=== PATIENT | female | born 1955 | race Caucasian/White ===

== ENCOUNTER 2018-12-13 10:47 | Day surgery (SDC) | payer BC ==
--- NOTE | 2018-12-13 08:09 | HP ---
DATE OF SURGERY: 12/13/2018 HISTORY OF PRESENT ILLNESS: The patient is a 63 year-old the past couple months increasing discomfort, question change in size of left arm subcutaneous mass or lipoma causing her increasing symptoms and she desires definitive excision. PAST MEDICAL HISTORY: She has had myocardial infarction, sleep apnea, Graves, hypertension in the past. She did have sleep apnea and heart disease in the past. PAST SURGICAL HISTORY: Tonsillectomy. Hysterectomy. Cholecystectomy. She had bowel resection. She had carpal tunnel in the past. She had knee replaced in the past. MEDICATIONS: Metoprolol, Enalapril, Furosemide, Zolpidem, Centrum Silver, calcium with vitamin D, aspirin, omega-3, Zyrtec. ALLERGIES: KEFLEX. TETANUS. FAMILY HISTORY: Cancer. SOCIAL HISTORY: She denies alcohol abuse. REVIEW OF SYSTEMS: Twelve systems reviewed. No chest pain or palpitations other systems negative or noncontributory as above and per preadmission questionnaire. PHYSICAL EXAMINATION: GENERAL: No acute distress. HEENT: Sclerae nonicteric. NECK: No JVD. CHEST: Equal excursion, nonlabored breathing. CVS: Regular rate and rhythm. ABDOMEN: Soft. No peritoneal signs. EXTREMITIES: Pertinent for subcutaneous mass on the left arm antecubital area. No cyanosis. No significant edema. NEURO: Alert, oriented, moving extremities symmetrically. No gross motor deficits noted. RECTAL: Deferred timed to endoscopy exam. IMPRESSION: Increasingly symptomatic subcutaneous mass or nodule left arm. I feel the patient will benefit from excisional biopsy. Risks and benefits explained in detail including but not limited to bleeding or infection, risk of hematoma or seroma formation, risk of aches, pains, burning, numbness or weakness of extremity, risk of sensory or motor nerve irritation or scar formation but not limited to as well as general risk of anesthesia, deep venous thrombosis, pulmonary embolism or pneumonia. She understands and agrees to the planned procedure, will proceed with excisional biopsy of left arm subcutaneous mass, nodule or lipoma as an outpatient.
[~2018-12-13 10:47] MED LIST: Lactated Ringers 1,000 ML IV ONE; Lactated Ringers 1,000 ML IV SCH; Sensorcaine 0.25% 10 ML ONE
[2018-12-13] MEDS ORDERED: TORAdol 30 mg Injection IV ONE (10:48)
[2018-12-13] MEDS ORDERED: Decadron 4 MG INJ IV ONE (10:48)
[2018-12-13] MEDS ORDERED: SUBLIMAZE 100 MCG/2 ML IV ONE (10:48)
[2018-12-13] MEDS ORDERED: DIPRIVAN 200 MG/20 ML IV ONE (10:48)
[2018-12-13] MEDS ORDERED: Zofran 4 MG/2 ML VIAL IV ONE (10:48)
[2018-12-13] MEDS ORDERED: Lactated Ringers 1,000 ML IV ONE (11:13)
[2018-12-13] MEDS ORDERED: Cleocin Phosphate IV 600 MG/4 ML ONE (13:16)
[2018-12-13 15:06] VITALS: BP 133/82; PULSE 61; O2SAT 96
--- NOTE | 2018-12-13 15:10 | OP ---
SURGERY DATE/TIME: 12/13/2018 1319 PREOPERATIVE DIAGNOSIS: Enlarging subcutaneous mass left antecubital area. POSTOPERATIVE DIAGNOSIS: Enlarging subcutaneous mass left antecubital area (lipomatous consistency). PROCEDURE: Excisional biopsy of left antecubital lipomatous density (approximately 4.5 cm) with intermediate closure. SURGEON: Dr. Donnie Chávez. ANESTHESIA: General. ESTIMATED BLOOD LOSS: Minimal. INDICATIONS: As noted above. Risks and benefits explained in detail and not limited to and consent obtained. DESCRIPTION OF PROCEDURE AND FINDINGS: The patient is taken to the operating room. General anesthesia induced. Arm had been marked and confirmed with the patient in the preoperative holding area. Prepped and draped in usual sterile fashion. After official time out and no disagreement with planned procedure, this mass is laying diagonally with the top edge of the antecubital area. Dissection carried down through the skin circumferentially around this lipomatous density. It is carefully dissected off the underlying fascia and dissected off underlying veins. The specimen is passed off for pathology. It is lipomatous in consistency, final path pending. There did not appear to be any other palpable nodules in the area. Good hemostasis noted. The wound was then closed in layers intermediate fashion advancing the flaps back towards the midline with interrupted 3-0 Vicryl in deep and superficial subcu. Skin closed with 4-0 Vicryl. Steri-Strips and sterile dressing applied. The patient tolerated the procedure well. There were no immediate complications. Findings discussed with the family out in the waiting area. She was transferred to the recovery room in stable condition.
== END 2018-12-13 15:10 | disposition home or self-care (01) ==
LOC: SDC 10:47
PROVIDERS: ATTEND Surgery
DX: D17.22 Benign lipomatous neoplasm of skin and subcutaneous tissue of left arm (principal)
CPT/HCPCS: 88304; J1100; J1885; J2405; J2704; J3010

== ENCOUNTER 2021-03-30 12:25 | Emergency (ER) | payer MEDICARE ==
[2021-03-30] MEDS ORDERED: TORAdol 30 mg Injection IM ONE (12:51)
[2021-03-30] MEDS ORDERED: Norflex 60 MG/2 ML IM ONE (12:51)
--- NOTE | 2021-03-30 12:54 | ERPHSYRPT ---
- History of Present Illness Time Seen by Provider: 03/30/21 12:52 Source: patient Exam Limitations: no limitations Patient Subjective Stated Complaint: Pt states "I am having horrible back spasms. I am having a colonoscopy on thursday and I cannot have any NSAIDS" Triage Nursing Assessment: Pt presented alert and oriented X3, skin pwd Pt ambulates with an upright steady gait, Pt haveing occasional spasms Physician History: Pt states "I am having horrible back spasms. I am having a colonoscopy on thursday and I cannot have any NSAIDS" c/o left side back spasms which comes and go. Denies any urinary complaints also denies any hx of kidney stones Timing/Duration: today Quality: other (spasms) Back Pain Location: lumbar spine Severity of Pain-Max: moderate Severity of Pain-Current: moderate Modifying Factors: Improves With: nothing Associated Symptoms: denies symptoms Allergies/Adverse Reactions: cephalexin [From Keflex] Allergy (Severe, Verified 03/22/21 09:47) Hives Home Medications: Aspirin 81 mg PO DAILY 12/06/18 [History] Calcium Carb/Vitamin D3/Vit K1 [Calcium + D Soft Chewable Tab] 1 each PO DAILY 12/06/18 [History] Cetirizine HCl [Zyrtec] 10 mg PO DAILY 12/06/18 [History] Furosemide 20 mg [Lasix 20 mg] 20 mg PO DAILY 12/06/18 [History] Metoprolol Succinate 50 mg [Toprol Xl 50 MG] 25 mg PO BID 12/06/18 [History] Multivit-Min/FA/Lycopen/Lutein [Centrum Silver Tablet] 1 each PO DAILY 12/06/18 [History] [place]-3 Fatty Acids [[place]-3] 1,000 mg PO DAILY 12/06/18 [History] Zolpidem Tartrate 10 mg [Ambien 10 MG] 10 mg PO HS 12/06/18 [History] Allopurinol 100 mg [Zyloprim 100 mg] 1 tab PO DAILY 03/22/21 [History] Atorvastatin Calcium 1 tab PO DAILY 03/22/21 [History] Diclofenac Sodium 1 tab PO BID 03/22/21 [History] Omeprazole 40 mg PO DAILY 03/22/21 [History] Psyllium Husk [Metamucil] 1 tsp PO DAILY 03/22/21 [History] estradioL [Estradiol (Twice Weekly)] 1 patch TOP WEEKLY 03/22/21 [History] Hx Tetanus, Diphtheria Vaccination/Date Given: Yes Hx Influenza Vaccination/Date Given: Yes Hx Pneumococcal Vaccination/Date Given: Yes Immunizations Up to Date: Yes Travel Risk - International Travel Have you traveled outside of the country in past 3 weeks: No - Coronavirus Screening Are you exhibiting any of the following symptoms?: No Close contact with a COVID-19 positive Pt in past 14-21 Days: No - Vaccine Status Have you recieved a Covid-19 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: 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: Cost Effective Data - Vaccination Dates Date of 2cond Vaccination (if applicable): 10/09/2020 - Review of Systems Constitutional: No Fever, No Chills Eyes: No Symptoms Ears, Nose, & Throat: No Symptoms Respiratory: No Cough, No Dyspnea Cardiac: No Chest Pain, No Edema, No Syncope Abdominal/Gastrointestinal: No Abdominal Pain, No Nausea, No Vomiting, No Diarrhea Genitourinary Symptoms: No Dysuria Musculoskeletal: Back Pain, No Neck Pain, No Fall Skin: No Rash Neurological: No Dizziness, No Focal Weakness, No Sensory Changes Psychological: No Symptoms Endocrine: No Symptoms All Other Systems: Reviewed and Negative - Past Medical History Pertinent Past Medical History: Yes Neurological History: No Pertinent History ENT History: No Pertinent History Cardiac History: Arrhythmia, Congestive Heart Failure, Hypertension, Myocardial Infarction (IA) Respiratory History: Sleep Apnea Endocrine Medical History: Hyperthyroidism Musculoskeletal History: Arthritis GI Medical History: No Pertinent History History: No Pertinent History Psycho-Social History: No Pertinent History Female Reproductive Disorders: No Pertinent History Other Medical History: anemia, lymphoma - Past Surgical History Past Surgical History: Yes Neuro Surgical History: No Pertinent History Cardiac: Cardiac Catheterization Respiratory: No Pertinent History Gastrointestinal: Cholecystectomy, Colon Resection Genitourinary: No Pertinent History Musculoskeletal: Joint Replacement Female Surgical History: Hysterectomy Other Surgical History: bilateral knee replacements,bilateral carpal tunnel. Cyst removed left index finger. - Social History Smoking Status: Never smoker Exposure to second hand smoke: No Drug Use: none Patient Lives Alone: Yes - Nursing Vital Signs Nursing Vital Signs: Initial Vital Signs Temperature 97.8 F 03/30/21 12:31 Pulse Rate 88 03/30/21 12:31 Respiratory Rate 20 03/30/21 12:31 Blood Pressure 164/86 03/30/21 12:31 O2 Sat by Pulse Oximetry 95 03/30/21 12:31 Pain Scale Pain Intensity [Back] 2 Pain Intensity 2 - Physical Exam General Appearance: no apparent distress, alert Eye Exam: PERRL/EOMI, eyes nml inspection Neck Exam: normal inspection, non-tender, supple, full range of motion, No meningismus, No midline tenderness Respiratory Exam: normal breath sounds, lungs clear, No respiratory distress Cardiovascular Exam: regular rate/rhythm, normal heart sounds Gastrointestinal Exam: soft, No tenderness, No mass Back Exam: normal inspection, muscle spasm Extremity Exam: normal inspection, normal range of motion, No calf tenderness, No pedal edema Neurologic Exam: alert, oriented x 3, cooperative, 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 as tested, normal mood/affect, nml station & gait, sensation nml, No motor deficits Skin Exam: normal color, warm, dry, No rash SpO2: 95 - Course Nursing assessment & vital signs reviewed: Yes Ordered Tests: Active Orders 24 hr Category Date Time Status UA W/RFX UR CULTURE Stat Lab 03/30/21 13:17 Completed Medication Summary Discontinued Medications Generic Name Dose Route Start Last Admin Trade Name Rhoda PRN Reason Stop Dose Admin Ketorolac Tromethamine 60 mg 03/30/21 12:51 03/30/21 13:19 Toradol 30 Mg Injection IM 03/30/21 12:52 60 mg STAT ONE Administration Ketorolac Tromethamine Confirm 03/30/21 13:14 Toradol 30 Mg Injection Administered 03/30/21 13:15 Dose 60 mg .ROUTE .STK-MED ONE Orphenadrine Citrate 60 mg 03/30/21 12:51 03/30/21 13:18 Norflex 60 Mg/2 Ml IM 03/30/21 12:52 60 mg STAT ONE Administration Orphenadrine Citrate Confirm 03/30/21 13:14 Norflex 60 Mg/2 Ml Administered 03/30/21 13:15 Dose 60 mg .ROUTE .STK-MED ONE Lab/Rad Data: Laboratory Results 03/30/21 Range/Units 13:17 Urine Color YELLOW (YELLOW) Urine Appearance SLIGHTLY CLOUDY (CLEAR) Urine pH 6.0 (5-6) Ur Specific [place] 1.011 (1.005-1.025) Urine Protein NEGATIVE (Negative) Urine Ketones NEGATIVE (NEGATIVE) Urine Blood NEGATIVE (0-5) Mehrdad/ul Urine Nitrite NEGATIVE (NEGATIVE) Urine Bilirubin NEGATIVE (NEGATIVE) Urine Urobilinogen NEGATIVE (0-1) mg/dL Ur Leukocyte Esterase TRACE (NEGATIVE) Urine WBC (Auto) 3-5 (0-5) /HPF Urine RBC (Auto) NONE (0-2) /HPF U Epithel Cells (Auto) RARE (FEW) /HPF Urine Bacteria (Auto) RARE (NEGATIVE) /HPF Urine Mucus (Auto) SLIGHT (NEGATIVE) /HPF Urine Culture Reflexed NO (NO) Urine Glucose NEGATIVE (NEGATIVE) mg/dL - Departure Departure Disposition: Home Clinical Impression: Back muscle spasm Condition: Stable Critical Care Time: No Referrals: TREMAINE KAYE [Primary Care Provider] - Follow Up with PCP/3 days Instructions: Muscle Spasms (DC) Additional Instructions: Discharge/Care Plan XI CHAVES was seen on 03/30/21 in the Emergency Room. The patient was counseled regarding Diagnosis,Lab results, Imaging studies, need for follow up and when to return to the Emergency Room. Prescriptions given: Discharge Note I have spoken with the patient and/or caregivers. I have explained the patient's condition, diagnosis and treatment plan based on the information available to me at this time. I have answered the patient's and/or caregiver's questions and addressed any concerns. The patient and/or caregivers have as good understanding of the patient's diagnosis, condition and treatment plan as can be expected at this point. The vital signs have been stable. The patient's condition is stable and appropriate for discharge from the emergency department. The patient will pursue further outpatient evaluation with the primary care physician or other designated or consulting physician as outlined in the discharge instructions. The patient and/or caregivers are agreeable to this plan of care and follow-up instructions have been explained in detail. The patient and/or caregivers have received these instruction. The patient/and or caregivers are aware that any significant change in condition or worsening of symptoms should prompt an immediate return to this or the closest emergency department or call 911. XI CHAVES was seen on 03/30/21 n the Emergency Room. At that time you were treated for an emergent condition, during your visit Laboratory, Radiology and/or other procedures may have been ordered. It is very important that you follow-up with your Primary Care Physician TREMAINE KAYE within the next 24- 48 hours to review your Emergency Room visit and the final results of testing that was ordered. Some test results such as Urine Cultures, Blood Cultures, and other cultures if ordered will not be finalized for 24-48 hours. If you do not have a Primary Care Provider please call the medical records department at [phone] ext [phone] to obtain a copy of your results or you may sign into our patient portal to obtain these results by visiting us @ [email or web address] and completing the following steps: 1. Click on the Patient Portal link 2. Click the Patient Self Enrollment Link to complete the enrollment form and entering your 3. Once the enrollment form is completed you will receive an email with a temporary ID and password at the email address you provided. 4. Next choose a user name and password. Your user name must be at least 4 characters long and your password must be at least 4 characters long. 5. Choose a security question from the list and provide your answer to the question. If you already have signed into the Health Portal you may access your Health Care Information 02/03 by the following steps: 1. Login to our website @ [email or web address] 2. Enter your original user name and password. FAQS The [facility] Health Portal is an online tool that contains your Lab Results, Radiology Reports, Visit History, Discharge Instructions and Health Summary Lab and Radiology Results will not be available for 72 hours on the portal. The Portal is a secure site, passwords are encryted and URLs are re-written so they cannot be copied and pasted. You and authorized family members are the only ones who can access your Portal. Also there is a timeout feature that protects your information if you leave the Portal page open. If you have technical difficulty please use the Contact Us link on the page this will allow you to submit any questions you have regarding the Portal or you may contact the Medical Record Department at [phone] ext [phone].
[2021-03-30] MEDS ORDERED: TORAdol 30 mg Injection ONE (13:14)
[2021-03-30] MEDS ORDERED: Norflex 60 MG/2 ML ONE (13:14)
[2021-03-30 13:28] LABS: Appearance SLIGHTLY CLOUDY (CLEAR); Bacteria RARE /HPF (NEGATIVE); Bilirubin NEGATIVE (NEGATIVE); Blood NEGATIVE Ery/ul (0-5); Epithelial Cells RARE /HPF (FEW); Glucose NEGATIVE (NEGATIVE); Ketones NEGATIVE (NEGATIVE); Leukocyte Esterase TRACE (NEGATIVE); Mucus SLIGHT /HPF (NEGATIVE); Nitrite NEGATIVE (NEGATIVE); Protein,Urine Dip NEGATIVE (Negative); Specific Gravity 1.011 (1.005-1.025); Urobilinogen NEGATIVE mg/dL (0-1)
[2021-03-30 13:48] VITALS: O2SAT 95
[2021-03-30 14:02] VITALS: BP 124/71; PULSE 92
== END 2021-03-30 14:02 | disposition home or self-care (01) ==
LOC: ED 12:25
DX: M62.830 Muscle spasm of back (principal)
CPT/HCPCS: 81001; 96372; 99284; J1885; J2360

== ENCOUNTER 2021-04-01 08:27 | Day surgery (SDC) | payer MEDICARE ==
--- NOTE | 2021-04-01 08:10 | HP ---
DATE OF SURGERY: 04/01/2021 HISTORY OF PRESENT ILLNESS: The patient is a 66 year-old with last colonoscopy five or six years ago. No bloody stools. Family history of colon cancer with aunt and uncle had some cancer. She denies any abdominal pain or new change in bowel movements. She is in need of follow up screening colonoscopy given family history of colon cancer. PAST MEDICAL HISTORY: Arthritis. Hypertension. PAST SURGICAL HISTORY: Tonsillectomy. Hysterectomy. Bowel resection in the past. MEDICATIONS: Metoprolol, furosemide, Estradiol, omeprazole, diclofenac, aspirin, Metamucil, atorvastatin, allopurinol, Zolpidem, Centrum Silver, calcium with vitamin D, omega-3, Zyrtec, vitamin C. ALLERGIES: KEFLEX. FAMILY HISTORY: As mentioned above. SOCIAL HISTORY: No alcohol abuse. REVIEW OF SYSTEMS: Fourteen systems reviewed. No chest pain or palpitations. Other systems negative or noncontributory as above and per preadmission questionnaire. PHYSICAL EXAMINATION: GENERAL: No acute distress. HEENT: Sclerae nonicteric. NECK: No JVD. CHEST: Equal excursion, nonlabored breathing. CVS: Regular rate and rhythm. ABDOMEN: Soft. No peritoneal signs. EXTREMITIES: No significant edema. NEURO: Alert, oriented, moving extremities symmetrically. RECTAL: Deferred timed to endoscopy exam. PSYCH: Appropriate mood and affect. IMPRESSION: Family history of colon cancer, need follow up screening colonoscopy. I feel the patient is a candidate. General risk of bleeding or infection, risk of bowel injury or perforation possibly requiring open procedure, risk of missed or nondiagnosis or incomplete exam possibly requiring barium enema, other studies or procedures, general risk of anesthesia or sedation, risk of bowel prep but not limited to, consent obtained. Will proceed with outpatient follow up screening colonoscopy.
[~2021-04-01 08:27] MED LIST changes: -Sensorcaine 0.25% 10 ML ONE
[2021-04-01] MEDS ORDERED: DIPRIVAN 200 MG/20 ML IV ONE ×3 (10:30→10:56)
[2021-04-01 11:45] VITALS: BP 131/83; PULSE 73; O2SAT 97
--- NOTE | 2021-04-02 09:29 | OP ---
SURGERY DATE/TIME: 04/01/2021 1030 PREOPERATIVE DIAGNOSIS: Family history of colon cancer, need for follow up screening colonoscopy. POSTOPERATIVE DIAGNOSES: 1) Sigmoid colon polyp. 2) Fair bowel prep. 3) ASA Class II. PROCEDURE: Colonoscopy to ileum with hot snare polypectomy of sigmoid colon polyp. Withdrawal time around ten minutes. Bowel prep was only fair. SURGEON: Dr. Donnie Chávez. ANESTHESIA: MAC. ESTIMATED BLOOD LOSS: Minimal. INDICATIONS: As noted above. Risks and benefits explained in detail but not limited to and consent obtained. DESCRIPTION OF PROCEDURE AND FINDINGS: The patient is taken to the endoscopy room. MAC anesthesia introduced. After official time out and no disagreement with planned procedure, digital rectal exam did not reveal any rectal masses. Video colonoscope inserted and passed up through the somewhat tortuous sigmoid, descending, transverse and ascending colon. With external pressure and positioning on her back, the scope was able to be passed around to the ileum. Good peristalsis in the small bowel. Photo documented. The scope was then carefully withdrawn over the next ten minutes. Prep overall was fair. A lot of liquidy semi-solid stool particularly in the right side of the colon this is suction irrigated out as clear as possible. The scope is slowly and carefully withdrawn over the next ten minutes. No signs of any other large polyps, masses or obstructing lesions. There was a 4 mm polyp sigmoid colon removed with hot snare polypectomy. It appeared to be removed completely with brief bursts of cautery and snare was retrieved per the staff. Otherwise no signs of any other large polyps, masses or obstructing lesions. The scope is withdrawn. The patient tolerated the procedure well. Findings discussed with the family out in the waiting area. I will see her back in the office next week.
== END 2021-04-01 11:53 | disposition home or self-care (01) ==
LOC: SDC 08:27
PROVIDERS: ATTEND Surgery
DX: Z12.11 Encounter for screening for malignant neoplasm of colon (principal); K63.5 Polyp of colon; Z86.010 Personal history of colon polyps; Z80.0 Family history of malignant neoplasm of digestive organs; Z79.899 Other long term (current) drug therapy
CPT/HCPCS: 88305; J2704

== ENCOUNTER 2021-07-01 07:52 | Day surgery (SDC) | payer MEDICARE ==
[~2021-07-01 07:52] MED LIST changes: -Lactated Ringers 1,000 ML IV SCH; +Sensorcaine 0.25% 10 ML ONE
--- NOTE | 2021-07-01 08:37 | HP ---
DATE OF SURGERY: 07/01/2021 HISTORY OF PRESENT ILLNESS: The patient is a 66-year-old had a core biopsy to right breast, had some hyperplasia, a little bit of columnar atypia. No liz cancer. She is in need of definitive excision for better evaluation by the pathologist. PAST MEDICAL HISTORY: Graves' disease. Arthritis. Hypertension. PAST SURGICAL HISTORY: Cholecystectomy. Tonsillectomy. Carpal tunnel. Hysterectomy. Bowel resection in the past. MEDICATIONS: Allopurinol, ascorbic acid, aspirin, atorvastatin, calcium and vitamin D, Cetirizine, diclofenac, esomeprazole, multivitamins, omega-3 fatty acids, zinc sulfate, Estrace vaginal cream, furosemide, metoprolol, zolpidem. ALLERGIES: KEFLEX. FAMILY HISTORY: Colon cancer. SOCIAL HISTORY: No alcohol abuse. REVIEW OF SYSTEMS: Fourteen systems reviewed. No chest pain or palpitations. Other systems negative or noncontributory as above and per preadmission questionnaire. PHYSICAL EXAMINATION: GENERAL: No acute distress. HEENT: Sclerae nonicteric. NECK: No JVD. CHEST: Equal excursion. BREAST: Right breast has some induration from a recent biopsy. CVS: Regular rate and rhythm. ABDOMEN: Soft. EXTREMITIES: No significant edema. NEURO: Alert, oriented, moving extremities symmetrically. PSYCH: Appropriate mood and affect. IMPRESSION: Some atypia on a core biopsy of the right breast. Pathologist recommended surgical excision for definitive path. I feel it needs to be done with prior needle placement to minimize extra tissue removal. Risks and benefits explained in detail including but not limited to bleeding or infection, risk of hematoma or seroma formation, risk of missing the area in question possibly requiring other procedures, possibility of the wire falling out on the way to the operating room or the inability of the radiologist to place the wire possibly requiring other studies or procedures. The possibility should malignancy be noted, she may need wider excision and node biopsy or other procedures in the future. General risk of anesthesia, deep vein thrombosis, pulmonary embolism, pneumonia. General risk of aches, pain, burning or numbness, risk of hematoma or seroma formation or infection possibly requiring packing, risk of contour change of the breast but not limited to, consent obtained. Will proceed with excisional biopsy or lumpectomy of the right breast with prior needle placement.
[2021-07-01] MEDS ORDERED: Levofloxacin 500MG/100ML D5W 500 MG/100 ML BAG IV SCH (09:00)
[2021-07-01] MEDS ORDERED: Lactated Ringers 1,000 ML IV SCH (09:00)
[2021-07-01 09:39] LABS: ALBUMIN 4.2 g/dL (3.5-5.0); ALKALINE PHOSPHATASE 86 U/L (38-126); ANION GAP 11.9 MEQ/L (5-15); BLOOD UREA NITROGEN 17 mg/dL (7-17); CHLORIDE 106 mmol/L (98-107); Calcium 9.3 mg/dL (8.4-10.2); Carbon Dioxide 28 mmol/L (22-30); Creatinine 1 0.78 mg/dL (0.52-1.04); EST GLOMERULAR FILTRATION RATE > 60.0 ML/MIN; Glucose 100 mg/dL (74-106); Potassium 4.5 mmol/L (3.5-5.1); SGOT/AST 35 U/L (14-36); SGPT/ALT 47 U/L (0-35); SODIUM 142 mmol/L (137-145); Total Protein 7.3 g/dL (6.3-8.2)
[2021-07-01] MEDS ORDERED: Versed 2 MG/2 ML Injection ONE ×2 (10:55→11:49)
[2021-07-01] MEDS: Versed 2 MG/2 ML Injection IV PRN ×2 (11:06→11:31)
--- NOTE | 2021-07-01 11:33 | XRAY ---
Indication: Needle wire localization for ultrasound biopsy-proven 12:00 right breast atypia. Informed consent obtained. Right breast was compressed in the CC plane using a alphanumeric grid paddle. Skin was cleansed with Betadine swabs. A 20-gauge Ghiatas needle was then percutaneously. Orthogonal right mammogram was obtained confirming overall good needle tip placement. Ultimately a hooked gerardo wire was then inserted into the needle with the outer needle removed. Repeat orthogonal digital mammograms obtained confirms overall good needle placement. Wire was secured and overlying bandage material applied. Patient was then taken to surgery. Impression: Technically successful needle wire localization 12:00 breast mass/X mammotome clip. No immediate complications.
[2021-07-01] MEDS ORDERED: DIPRIVAN 200 MG/20 ML IV ONE (11:47)
[2021-07-01] MEDS ORDERED: SUBLIMAZE 100 MCG/2 ML ONE ×2 (11:47→12:37)
--- NOTE | 2021-07-01 12:35 | XRAY ---
Indication: Surgical specimen following lumpectomy. A single specimen radiograph demonstrates the suspicious right breast mass with X-shaped mammotome clip as seen on outside mammogram from [facility] dated May 14, 2021. A O shaped mammotome clip is also included in the specimen. Findings were reported to the surgeon.
[2021-07-01 16:58] VITALS: BP 140/75; PULSE 73; O2SAT 95
--- NOTE | 2021-07-02 08:47 | OP ---
SURGERY DATE/TIME: 07/01/2021 1149 PREOPERATIVE DIAGNOSIS: History of core biopsy abnormal mammogram density in need of lumpectomy for definitive pathologic evaluation with a few focal area of atypia on core biopsy. POSTOPERATIVE DIAGNOSIS: History of core biopsy abnormal mammogram density in need of lumpectomy for definitive pathologic evaluation with a few focal area of atypia on core biopsy, path pending. PROCEDURE: Right breast lumpectomy, prior needle placement3 SURGEON: Dr. Donnie Chávez. ANESTHESIA: General. ESTIMATED BLOOD LOSS: None. INDICATIONS: As noted above. Risks and benefits explained in detail and not limited to and consent obtained. The guidewire was placed to the area in question, marked with the radiologist as it was marked preoperatively. Breast marked. Questions were answered. DESCRIPTION OF PROCEDURE AND FINDINGS: Taken to the operating room. General anesthesia induced. Breast prepped and draped in usual sterile fashion. After official time out and no disagreement with the planned procedure, a spindle-shaped segment of skin over the top. Dissection carried down circumferentially trying to stay out around the guide wire down to the chest wall. The specimen is passed off for pathology. It is marked at the 3:00 position with double tie, 6:00 position with single tie. Then brought the breast parenchyma back together as well as possible given the area that this required resecting this is a true lumpectomy specimen rather than a simple just biopsy. The breast parenchyma brought back together with interrupted 3-0 Vicryl. Subcu brought back with interrupted 3-0 Vicryl. Skin closed with 4-0 Vicryl. Steri-Strips and sterile dressing applied. Marcaine 0.25% local injected along the skin incision. Radiology called back and said we had the guide wire in the area that they were interested in. Final path pending. I eventually spoke with the patient's family. There were no immediate complications. She was transferred to the recovery room in stable condition. I will see her back in the office next week to go over the results.
== END 2021-07-01 14:10 | disposition home or self-care (01) ==
LOC: SDC 07:52
PROVIDERS: ATTEND Surgery
DX: R92.8 Other abnormal and inconclusive findings on diagnostic imaging of breast (principal); I10 Essential (primary) hypertension; Z80.0 Family history of malignant neoplasm of digestive organs
CPT/HCPCS: 19281; 36415; 76098; 80053; 88307; 88341; 88342; 88360; 93005; J1956; J2250; J2704; J3010

== ENCOUNTER 2024-06-06 09:27 | Day surgery (SDC) | payer MEDICARE ==
--- NOTE | 2024-06-06 08:43 | HP ---
HISTORY: Had some rectal bleeding recently. Patient is considering that hemorrhoids. Had a history of polyps in the past. 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 Wears corrective lenses. PAST SURGICAL HISTORY: Tonsillectomy/adenoidectomy, hysterectomy, carpal tunnel, had colon resection with polyp in the past, had cardiac ablation, had a breast lumpectomy in the past, had a knee replacement, cholecystectomy and lipoma in the past. HOME MEDICATIONS: Xyzal, Replens, probiotic, Kefzol, fish oil, Centrum Silver, calcium, zolpidem, omeprazole, metoprolol, furosemide, Eliquis, atorvastatin for some hyperlipidemia, anastrazole, allopurinol. ALLERGIES: Keflex. FAMILY HISTORY: Colon cancer in aunt, uncle and cousin. SOCIAL HISTORY: No smoking. Occasional alcohol use. REVIEW OF SYSTEMS: Twelve systems reviewed. No chest pain or palpitations. Other systems negative or noncontributory as above and per preadmission questionnaire. PHYSICAL EXAMINATION: GENERAL: Height: 5 feet 8 inches. No acute distress. HEENT: Sclerae nonicteric. NECK: No JVD. CHEST: Equal excursion, nonlabored breathing. CARDIOVASCULAR: Irregular rate. ABDOMEN: Soft. EXTREMITIES: No cyanosis or edema. NEUROLOGIC: Alert and oriented. Moving extremities symmetrically. PSYCHIATRIC: Appropriate mood and affect. SKIN: Dry. RECTAL: Deferred until the time of endoscopy exam. IMPRESSION: Itchy rectal bleeding, history of polyps. Family history of colon cancer. Patient needs a colonoscopy. Risks explained in detail including but not limited to bleeding; infection; risk of bowel injury or perforation; possibility of needing an open procedure; risk of missed or nondiagnosis or incomplete exam possibly requiring barium enema; risk of requiring further workup, procedures, or referrals; risk of sedation or anesthesia; risk of bowel prep but not limited to. To old her blood thinners preop. Otherwise, continue medications for her heart disease, breast cancer, history of thyroid disease, hypertension, reflux and hyperlipidemia. She is also interested in a possible internal hemorrhoid band if indicated. Risks of progression of hemorrhoid disease, risks of aches, pains or infection, risks of control issues but not limited to. We will proceed with colonoscopy and possible internal hemorrhoid banding under MAC anesthesia.
[2024-06-06] MEDS ORDERED: Lactated Ringers 1,000 ML IV ONE (09:41)
[2024-06-06] MEDS: Lactated Ringers 1,000 ML IV SCH (09:46)
[2024-06-06] MEDS ORDERED: DIPRIVAN 200 MG/20 ML IV ONE ×2 (11:26→11:43)
[2024-06-06] MEDS ORDERED: Versed 2 MG/2 ML Injection ONE (11:27)
[2024-06-06] MEDS ORDERED: SUBLIMAZE 100 MCG/2 ML ONE (11:47)
[2024-06-06 12:43] VITALS: BP 142/76; PULSE 71; RESP 16; O2SAT 96
[2024-06-06 13:09] VITALS: TEMP 97.8
--- NOTE | 2024-06-07 23:07 | OP ---
SURGERY DATE/TIME: 06/06/2024 5151 - [id number] PREOPERATIVE DIAGNOSES: 1) History of polyps. 2) History of rectal bleeding. 3) History of internal hemorrhoids. POSTOPERATIVE DIAGNOSES: 1) ASA Class 3. 2) Fair but limited bowel preparation. 3) Few small diverticula, left colon. 4) Polyps in the transverse colon, descending colon, and rectum. 5) Grade 2 internal hemorrhoids with history of bleeding, in need of banding. PROCEDURES: 1) Colonoscopy to ileum and ileocolonic anastomosis. 2) Hot snare polypectomy of transverse colon polyp x2. 3) Hot snare polypectomy of descending colon polyp x1. 4) Hot biopsy polypectomy of transverse colon polyp. 5) Hot biopsy polypectomy of a rectal polyp. 6) Internal hemorrhoid banding x3 columns. SURGEON: William Chávez MD ANESTHESIA: MAC. ESTIMATED BLOOD LOSS: Minimal. INDICATIONS: As above. Risks and benefits were explained in detail, but not limited to. Consent obtained. DESCRIPTION OF PROCEDURE AND FINDINGS: The patient was taken to the operating room. MAC anesthesia induced. Digital rectal exam did not reveal any rectal masses. She did have some internal hemorrhoids. Videocolonoscope was inserted. The scope was passed around. The patient had a prior ileocecal resection of her polyp and a proximal colon resection with ileocolonic anastomosis. The scope was passed around, a little bit tortuous colon. With some external pressure, scope was able to reach the ileocolonic anastomotic site. This was widely patent. There were no signs of any recurrent polyps at this area. Scope was carefully withdrawn over the next 10 or 11 minutes, stopping in the transverse colon, then removed 1 polyp with hot biopsy polypectomy that was about 2 mm in size. There were a couple of 3 mm polyps removed with hot snare polypectomy and vigorous cautery. Good hemostasis noted. There was a 3 mm polyp in descending colon that was removed with hot snare polypectomy, also 2 transverse and 1 descending removed with hot snare polypectomy. Otherwise, scope pulled through. She had a few little tiny early diverticulosis in the left colon. Scope pulled back to the rectum. Small early polyp versus hyperplastic lesion removed with hot biopsy forceps. Good hemostasis noted. On retroflexion, she had some internal hemorrhoids. Scope was withdrawn at this point, and then she had the rectal bleeding and required blood thinner use so she could benefit from a trial banding that had been discussed in the office. At this point, half gordon retractor was carefully inserted. Grade 2 internal hemorrhoids that had been having some bleeding. Suction buttonhole maker was applied to the top edge of the hemorrhoid column and easily fired. There was a tuft of tissue noted in the left lateral position. This was repeated in the right posterior position and then again in the right anterior position, 3 columns were banded. Good hemostasis noted. The retractor was withdrawn. The patient tolerated the procedure well. There were no immediate complications. Findings discussed with family out in the waiting area.
== END 2024-06-06 13:09 | disposition home or self-care (01) ==
LOC: SDC 09:27
PROVIDERS: ATTEND Surgery
DX: Z09 Encounter for follow-up examination after completed treatment for conditions other than malignant neoplasm (principal); Z86.0100 Personal history of colon polyps, unspecified; Z85.3 Personal history of malignant neoplasm of breast; Z87.19 Personal history of other diseases of the digestive system; D12.7 Benign neoplasm of rectosigmoid junction; D12.4 Benign neoplasm of descending colon; D12.3 Benign neoplasm of transverse colon; K57.30 Diverticulosis of large intestine without perforation or abscess without bleeding; K62.5 Hemorrhage of anus and rectum; K62.1 Rectal polyp; K64.8 Other hemorrhoids
CPT/HCPCS: J2250; J2704; J3010